=== PATIENT | male | born 1995 | race Caucasian/White ===

== ENCOUNTER 2017-12-02 06:16 | Inpatient (IN) | payer BC ==
[~2017-12-02] VITALS: Ht 167.6 cm; Wt 74.0 kg
[2017-12-02 06:25] VITALS: Ht 167.6 cm; Wt 74.0 kg
[2017-12-02 07:30] LABS: BASOPHIL % 0.2 % (0-2); PLATELET COUNT 347 x10^3mcL (130-400)
[2017-12-02 07:41] LABS: CALCIUM 9.6 mg/dL (8.5-10.1); CARBON DIOXIDE 19.1 mmol/L (21-32); CHLORIDE SERUM 105 mmol/L (98-107); CREATININE SERUM 1.1 mg/dL (0.7-1.3); GFR1 > 60 mL/min; GLUCOSE SERUM 167 mg/dL (74-106); POTASSIUM SERUM 3.6 mmol/L (3.5-5.1); SODIUM SERUM 144 mmol/L (136-145)
[2017-12-02 07:45] LABS: ALBUMIN 4.7 g/dL (3.4-5.0); ALKALINE PHOSPHATASE 82 U/L (46-116); ALT/SGPT 29 U/L (16-63); AST/SGOT 21 U/L (15-37); BILIRUBIN TOTAL 0.72 mg/dL (0.20-1.00); LIPASE 140 IU/L (73-393); TOTAL PROTEIN, SERUM 7.9 g/dL (6.4-8.2)
[2017-12-02 08:03] LABS: AMPHETAMINE QUAL UR NONE DETECTED (See below)
[2017-12-02 08:11] LABS: UA SPECIFIC GRAVITY 1.015 (1.005-1.035); microscopic required? YES; urine erythrocyte NEGATIVE (NEGATIVE)
[2017-12-02 11:14] LABS: BAND NEUTROPHIL 0 % (0-10); BASOPHIL 0 % (0-2); MONOCYTE 4 % (0-7); SEGMENTED NEUTROPHILS 84 % (37-75)
[2017-12-02 11:15] LABS: PLATELET MORPHOLOGY PLATELETS NORMAL; rbc morphology (normal/abnorm) NORMAL (NORMAL)
[2017-12-02 11:33] LABS: CHOLESTEROL/HDL RATIO 4.1; MAGNESIUM 1.6 mg/dL (1.8-2.4); PHOSPHOROUS 1.5 mg/dL (2.5-4.9)
[2017-12-02 11:37] LABS: T3 TOTAL 0.89 ng/mL
[2017-12-02 11:42] LABS: FREE T4 1.21 ng/dL (0.76-1.46); FREE THYROXINE INDEX 2.9 ug/dL (1.4-4.5); T4(THYROXINE) 7.7 ug/dL (4.7-13.3)
[2017-12-02 12:33] VITALS: BP 114/43
[2017-12-02 17:40] VITALS: BP 97/54
[2017-12-02 19:10] VITALS: BP 111/67
[2017-12-03 05:41] VITALS: BP 121/70
[2017-12-03 06:30] LABS: BASOPHIL % 0.3 % (0-2); PLATELET COUNT 219 x10^3mcL (130-400); RED CELL DISTRIBUTION WIDTH 12.6 % (11.5-14.5)
[2017-12-03 07:38] LABS: CALCIUM 8.7 mg/dL (8.5-10.1); CHLORIDE SERUM 109 mmol/L (98-107); CREATININE SERUM 0.9 mg/dL (0.7-1.3); GFR1 > 60 mL/min; GLUCOSE SERUM 96 mg/dL (74-106); PHOSPHOROUS 2.6 mg/dL (2.5-4.9); POTASSIUM SERUM 3.7 mmol/L (3.5-5.1); SODIUM SERUM 144 mmol/L (136-145)
[2017-12-03 08:18] VITALS: BP 138/75
== END 2017-12-03 12:40 | disposition left against medical advice (07) | DRG 391 ==
LOC: ED 06:16 → DU 09:54
PROVIDERS: Emergency Medicine; Internal Medicine
DX: K52.9 Noninfective gastroenteritis and colitis, unspecified (principal); N17.0 Acute kidney failure with tubular necrosis; Z53.21 Procedure and treatment not carried out due to patient leaving prior to being seen by health care provider; R80.9 Proteinuria, unspecified; T62.91XA Toxic effect of unspecified noxious substance eaten as food, accidental (unintentional), initial encounter; Y92.89 Other specified places as the place of occurrence of the external cause
CPT/HCPCS: 83880; 84439; G0480; J0696; J1630; J1885; J2060; J2405; J7030; J7040